=== PATIENT | female | born 1940 | race Caucasian/White ===

== ENCOUNTER 2022-02-12 17:31 | Emergency (ER) | payer MEDICARE, SELFPAY ==
[2022-02-12 17:36] VITALS: BP 106/65; PULSE 84; RESP 16; TEMP 36.4; O2SAT 94
--- NOTE | 2022-02-12 19:37 | ED_ITS ---
HPI - General Adult General Time Seen by Provider: 18:00 Date Seen: 02/12/22 Chief complaint: Psychiatric Problem/Disorder Stated complaint: Agitation Time Seen by Provider: 02/12/22 17:35 History of Present Illness HPI narrative: 81-year-old female seen with her daughter for evaluation of dementia with behavioral disturbances. Patient has been living with her daughter in [facility] near [place], for approximately last 3 years. The daughter has been full- time caregiver. She does not work outside the home. This is going well according to the daughter except problems recently with her mom refusing to take medications. Her mom had refused to take Xarelto and it was felt that this had led to her having a stroke about a week ago. The daughter was unaware that medications could be crushed and mixed with applesauce or pudding. The patient generally has done well living with her daughter. She ambulates independently. She will occasionally have episodes where she gets agitated but the daughter has been able to manage these episodes at home successfully. The daughter thinks severe episodes occur just a few times per year. At the beginning of January she was seen in the [place] [facility] because of 1 of these episodes. She was diagnosed with a UTI. at that time she was not having any obvious urinary symptoms but had abnormal urinalysis. On February 03 she was brought back to the [place] [facility] because she was having more trouble walking. She was discharged to home again and then went to the [place] [facility] on February 04 where she was found to have a stroke in the [facility] dist ribution on CT scan. She was hospitalized in [place] for 7 days and discharged to a detention in [place] yesterday. Today the detention in [place] told the daughter that they could not take care of her because of her behavioral disturbance and so she was sent to our emergency department. The daughter reports that behaviors are episodes where she becomes paranoid. she can become physically aggressive. Apparently there was an attempt to get geriatric psychiatry follow-up after hospitalization [place] but this was apparently unsuccessful. [facility] [place] she was started on Zyprexa, risperidone all, sertraline for her behavioral disturbance. the patient has chronic atrial fibrillation and has been on Xarelto but not taking it Before her stroke. Her daughter thinks she could get her to take medicine if she could crush the pills and mix them with food but did know that before the stroke. The stroke has left her without marked disability. Initia lly there were problems with communication particularly speaking as well as walking. The daughter thinks her walking is getting close to baseline as well as her speaking is getting close to baseline. the daughter notes that her mom has been more agitated while she was in the hospital and in the detention than she is at home. She is requesting that she above be allowed to take her home with her again Related Data Home Medications Medication Instructions Recorded Confirmed levothyroxine 75 mcg capsule 75 mcg PO DAILY 02/12/22 02/12/22 Previous Rx's Medication Instructions Recorded melatonin 1 mg tablet 1 mg PO HS #30 tab 02/12/22 metoprolol tartrate 25 mg tablet 12.5 mg PO BID #30 tab 02/12/22 olanzapine 5 mg disintegrating 5 mg PO DAILY PRN #10 tab 02/12/22 tablet rivaroxaban 15 mg tablet (Xarelto) 15 mg PO DAILY #30 tab 02/12/22 Allergies Allergy/AdvReac Type Severity Reaction Status Date / Time morphine Allergy Verified 02/12/22 17:47 Sulfa (Sulfonamide Allergy Verified 02/12/22 17:47 Antibiotics) sulfasalazine Allergy Verified 02/12/22 17:47 tapentadol Allergy Verified 02/12/22 17:47 warfarin Allergy Verified 02/12/22 17:47 atorvastatin AdvReac Verified 02/12/22 17:47 Review of Systems Narrative: she has had no other illness, including cold, cough, fever, trouble breathing. No indication of chest or abdominal pain. She has been eating normally. No nausea or vomiting. No bowel problems. No bladder problems. Review of systems is limited by the the patient has dementia. [facility] Medical History (Updated 02/12/22 @ 19:55 by Tim Morse MD) Atrial fibrillation Dementia with behavioral disturbance Stroke Family History (Updated 02/12/22 @ 19:56 by Tim Morse MD) Mother No problems noted. Other Dementia Social History Smoking Status: Unknown if ever smoked Do you use any of these nicotine containing products: None Second hand tobacco smoke exposure: No How often do you have a drink containing alcohol: never How often do you have six or more drinks on one occasion: Never AUDIT-C Alcohol total score: 0 Non-prescribed substance use: declined to answer Exam Narrative: Exam Narrative: patient is cyst sitting quietly in bed. No agitation. When I speak to her she gives either no verbal response or minimal nod of yes and no. She does respond a little bit more to her daughter. Head is without trauma. Eyes are normal. Oropharynx is normal. Neck is supple without mass or adenopathy. Respirations are clear to auscultation. Cardiovascular: S1, S2, irregularly irregular. Abdomen: Bowel sounds active. Abdomen is soft without tenderness. She is observed to move all 4 extremities. No tremor. Const: Vital Signs, click to edit/add: Vital Signs - 24 hr 02/12/22 17:36 Temperature 97.5 F L Pulse Rate [Left P ulse Oximeter] 84 Respiratory Rate 16 Blood Pressure [Le ft Upper Arm] 106/65 Pulse Oximetry 94 Documenting provider has reviewed patient's vital signs: yes Course Course Hospital Course: I talk with her daughter for approximately 1 hour about evaluation and management of behavioral problems in dementia, limited benefit of medications, more clear benefit of providing the right environment for her. The daughter ve ry much wants to take her mom home. We also talked about goals of care, palliative care and end of life care. At this point patient does not quite seem ready for hospice but daughter is open to that when the time comes. During this time the patient remained very calm. She did become upset when she was being transferred into the car to go home with her daughter. Because of this she was given 1 dose of Zyprexa. Vital Signs Vital signs: Initial Vital Signs Temperature 97.5 F L 02/12/22 17:36 Temperature Source Temporal Artery Scan 02/12/22 17:36 Pulse Rate 84 02/12/22 17:36 Pulse Rhythm 02/12/22 17:36 Respiratory Rate 16 02/12/22 17:36 Blood Pressure 106/65 02/12/22 17:36 Blood Pressure Mean 78 02/12/22 17:36 Blood Pressure Position Sitting 02/12/22 17:36 Pulse Oximetry 94 02/12/22 17:36 Vital Signs Temperature 97.5 F L 02/12/22 17:36 Pulse Rate 84 02/12/22 17:36 Respiratory Rate 16 02/12/22 17:36 Blood Pressure 106/65 02/12/22 17:36 Pulse Oximetry 94 02/12/22 17:36 Temperature 97.5 F L 02/12/22 17:36 Pulse Rate 84 02/12/22 17:36 Respiratory Rate 16 02/12/22 17:36 Blood Pressure 106/65 02/12/22 17:36 Pulse Oximetry 94 02/12/22 17:36 Discharge Plan Discharge Clinical Impression: Dementia with behavioral disturbance, Atrial fibrillation, Stroke Patient Disposition: Home w/ Parent or Adult Condition: Stable Additional Instructions: check her blood pressure and pulse twice a day before giving metoprolol. Her resting pulse should be less than 100 and greater than 60. Her resting blood pressure should be greater than 90/60. We will start with a dose of metoprolol 25 mg taken 1/2 tablet in the morning and 1/2 tablet in the evening. I have prescribed Zyprexa /ondansetron to use in case she gets severely agitated. Find a primary care doctor to help you manage your mom's health problems and medications. Try to get an appointment in the next 2 weeks. Activity Level: Activity as Tolerated Prescriptions: New olanzapine 5 mg tablet,disintegrating 5 mg PO DAILY PRNQty: 10 0RF melatonin 1 mg tablet 1 mg PO HS Qty: 30 0RF Xarelto 15 mg tablet 15 mg PO DAILY Qty: 30 0RF Rx Instructions: must administer with evening meal metoprolol tartrate 25 mg tablet 12.5 mg PO BID Qty: 30 2RF Continued levothyroxine 75 mcg capsule 75 mcg PO DAILY 0RF Discontinued olanzapine 5 mg tablet 5 mg PO BID 0RF risperidone 0.25 mg tablet 0.25 mg PO BID 0RF risperidone [Risperdal] 0.5 mg tablet 0.5 mg PO DAILY 0RF rivaroxaban 15 mg tablet 15 mg PO DAILY 0RF Rx Instructions: must administer with evening meal sertraline 25 mg tablet 25 mg PO DAILY 0RF Stand Alone Forms: [employer] Info Instructions
[2022-02-12] MEDS: OLANZapine 5 MG TAB.RAPDIS PO (20:00)
--- NOTE | 2022-02-12 20:28 | ED.NURSE ---
DC instructions reviewed with pt's daughter. Pt uncooperative with DC due to being confused. Pt stating everything staff and her daughter were saying was the wrong way. Pt refused to leave the building until multiple redirection efforts convinced pt to sit in a wheelchair to go outside. Pt brought outside to vehicle, pt refused to get into vehicle once outside. Pt telling her daughter to shut up. Pt brought back inside to , given medication PO. Pt unwilling to go outside for several minutes, eventually convinced by multiple staff members to go outside in wheelchair again. Pt provided with pillowcase to fold as a distraction. Once outside, pt unwilling to enter vehicle and leave with daughter. Pt told Gayle CHRISTIAN and Daniel RN that we were full of shit multiple times. Pt agitated towards staff, made several swinging movements with her hands towards both Gayle RN and Daniel RN. Pt stated she wanted to put this pillowcase over your face to Gayle CHRISTIAN. Verbal redirection attempted for several minutes unsuccessfully. Additional staff members requested for assistance, [place] arrived to speak with pt. Pt very friendly towards [place], agreed to get into vehicle immediately. Pt assisted into vehicle and departed with daughter.
== END 2022-02-12 20:25 ==
LOC: ED 19:37
PROVIDERS: Emergency Provider Family Medicine
DX: F03.91 Unspecified dementia, unspecified severity, with behavioral disturbance (principal)
CPT/HCPCS: 99283; 99284; A9270